=== PATIENT | female | born 1935 | race Caucasian/White ===

== ENCOUNTER 2022-09-26 11:04 | Inpatient (IN) | payer OTHER ==
[~2022-09-26] VITALS: Ht 142.2 cm; Wt 45.6 kg
[2022-09-26 11:54] LABS: Basophils # (auto) 0.1 10 ^3/uL (0-0.2); Eosinophils # (auto) 0 10 ^3/uL (0-0.8); Lymphocytes # (auto) 1.4 10 ^3/uL (0.4-5.4); Monocytes # (auto) 0.8 10 ^3/uL (0-1.3)
[2022-09-26 11:58] LABS: Basophils % (auto) 0.6 % (0.0-2.0); Eosinophils % (auto) 0.2 % (0.0-7.0); Hematocrit 38.3 % (36.0-46.0); Hemoglobin 12.2 g/dL (12.2-16.2); Lymphocytes % (auto) 11.8 % (10.0-50.0); Mean Corpuscular Hemoglobin 24.8 pg (28.0-32.0); Mean Corpuscular Volume 77.5 fL (80.0-100.0); Monocytes % (auto) 6.7 % (0.0-12.0); Neutrophils # (auto) 9.7 10 ^3/uL (1.6-8.6); Neutrophils % (auto) 80.7 % (37.0-80.0); Red Blood Cells 4.94 10^6/uL (4.0-5.20)
[2022-09-26 12:10] LABS: Albumin 2.7 g/dL (3.4-5.0); BUN/Creatinine Ratio 13.2; Calcium 8.4 mg/dL (8.5-10.1); Potassium 3.8 mmol/L (3.5-5.1)
[2022-09-26 12:12] LABS: Bilirubin, Total 1.5 mg/dL (0.2-1.0); Total Protein 6.2 g/dL (6.4-8.2)
[2022-09-26 12:23] LABS: INR 1.13 (0.9-1.15); Partial Thromboplastin Time 28.5 sec (24.6-33.4)
[2022-09-26] MEDS ORDERED: SODIUM CHLORIDE 0.9% 1,000 ML IV ONE ×2 (15:30→18:45)
[2022-09-26] MEDS ORDERED: HYDROcodone-ACET 10/325MG TAB PO ONE (17:00)
[2022-09-26 17:49] LABS: Urine Bacteria MOD /hpf (None Seen); Urine Blood 1+ /uL (Negative); Urine Specific Gravity 1.016 (1.001-1.035); Urine WBC 1100 /hpf (0 - 5); Urine WBC Clumps PRESENT /hpf (None Seen)
[2022-09-26] MEDS ORDERED: SODIUM CHLORIDE 0.9% 1,000 ML IV SCH (18:15)
[2022-09-26] MEDS ORDERED: cefTRIAXone 1GM/50ML D5W 50 ML IV ONE (19:00)
[2022-09-27] MEDS ORDERED: EPINEPHrine HCL 1 MG/1 ML AMP ONE (06:46)
[2022-09-27] MEDS ORDERED: DexAMETHasone SOD PHOS 4 MG/1ML SDV INJ ONE (06:46)
[2022-09-27] MEDS ORDERED: BUPIVACAINE 0.25% INJ 50ML VIAL ONE (06:46)
[2022-09-27 07:22] LABS: Albumin 2.2 g/dL (3.4-5.0); Calcium 7.8 mg/dL (8.5-10.1); Potassium 3.6 mmol/L (3.5-5.1)
[2022-09-27 07:24] LABS: BUN/Creatinine Ratio 24.4
[2022-09-27 07:41] LABS: Bilirubin, Total 0.9 mg/dL (0.2-1.0); Total Protein 5.1 g/dL (6.4-8.2)
[2022-09-27] MEDS ORDERED: PROPOFOL 10 MG/ML 20 ML IV ONE ×2 (07:41→09:30)
[2022-09-27 07:42] LABS: Basophils # (auto) 0 10 ^3/uL (0-0.2); Basophils % (auto) 0.5 % (0.0-2.0); Eosinophils # (auto) 0.1 10 ^3/uL (0-0.8); Eosinophils % (auto) 1.6 % (0.0-7.0); Hematocrit 32.6 % (36.0-46.0); Hemoglobin 10.8 g/dL (12.2-16.2); Lymphocytes # (auto) 1.7 10 ^3/uL (0.4-5.4); Lymphocytes % (auto) 19.8 % (10.0-50.0); Mean Corpuscular Hemoglobin 25.7 pg (28.0-32.0); Mean Corpuscular Volume 77.8 fL (80.0-100.0); Monocytes # (auto) 0.6 10 ^3/uL (0-1.3); Monocytes % (auto) 7.2 % (0.0-12.0); Neutrophils % (auto) 70.9 % (37.0-80.0); Red Blood Cells 4.19 10^6/uL (4.0-5.20); Red Cell Distribution Width 19.3 % (11.8-14.3); White Blood Cell 8.5 10^3/uL (4.4-10.8)
[2022-09-27] MEDS ORDERED: KETOROLAC TROMETH 30 MG/ML 1ML VIAL ONE (07:42)
[2022-09-27] MEDS ORDERED: GLYCOPYRROLATE 0.2 MG/ML 1ML VIAL ONE (07:42)
[2022-09-27] MEDS ORDERED: DexAMETHasone SOD PHOS 10MG/1ML VIAL INJ ONE (07:42)
[2022-09-27] MEDS ORDERED: LIDOCAINE 1% (LOCAL ANESTH.) PF 5ml SDV ONE (07:42)
[2022-09-27] MEDS ORDERED: ONDANSETRON HCL 4 MG/2 ML VIAL ONE ×2 (07:42→11:11)
[2022-09-27] MEDS ORDERED: ceFAZolin 1GM/50ML 50 ML IV ONE (08:38)
[2022-09-27] MEDS ORDERED: cefTRIAXone 1GM/50ML D5W 50 ML IV SCH (09:00)
[2022-09-27] MEDS ORDERED: PHENYLEPHRINE HCL 10 MG/ML VL ONE (09:05)
[2022-09-27] MEDS ORDERED: SODIUM CHLORIDE LOCK 20 ML ONE (09:05)
[2022-09-27] MEDS ORDERED: SODIUM CHLORIDE LOCK 10 ML ONE (09:23)
[2022-09-27] MEDS: ENOXAPARIN SOD 30 MG/0.3 ML SYRINGE SC SCH (10:00)
[2022-09-27] MEDS ORDERED: hydrALAZINE HCL 20 MG/ML VL IV PRN (10:45)
[2022-09-27] MEDS ORDERED: LABETALOL HCL 5 MG/ML 4ML SYRINGE IV PRN (10:45)
[2022-09-27] MEDS ORDERED: NALOXONE HCL 0.4 MG/ML VIAL IV PRN (10:45)
[2022-09-27] MEDS ORDERED: ONDANSETRON HCL 4 MG/2 ML VIAL IV PRN ×2 (10:45→16:15)
[2022-09-27] MEDS ORDERED: HYDROmorphone HCL 2 MG/ML VL/or syr IV PRN (10:45)
[2022-09-27] MEDS ORDERED: fentaNYL CITRATE 100 MCG/2 ML VL IV PRN (10:45)
[2022-09-27] MEDS ORDERED: FLUMAZENIL 0.1 MG/ML INJ 10ML MDV IV PRN (10:45)
[2022-09-27] MEDS ORDERED: ePHEDrine SULFATE 50 MG/ML AMP IV PRN (10:45)
[2022-09-27] MEDS: PIPERACILLIN-TAZOB 3.375GM 100 ML IV SCH (17:07)
[2022-09-27] MEDS ORDERED: GABA100C9 PO (18:17)
[2022-09-27] MEDS ORDERED: HYDR-4902 PO (18:17)
[2022-09-27] MEDS ORDERED: LORazepam 2MG/ML-1ML VIAL IV PRN (18:45)
[2022-09-27 19:30] VITALS: BP 135/88
[2022-09-27] MEDS ORDERED: HALOPERIDOL LACTATE 5 MG/ML INJ VIAL IM ONE (19:45)
[2022-09-27] MEDS: HALOPERIDOL LACTATE 5 MG/ML INJ VIAL IM PRN (20:09)
[2022-09-27] MEDS: SENNA 8.6 MG TAB PO SCH (21:32)
[2022-09-27] MEDS: MORPHINE SULFATE INJ 2 MG/ml SYRG IV PRN (21:33)
[2022-09-28] MEDS: HALOPERIDOL LACTATE 5 MG/ML INJ VIAL IM PRN (02:25)
[2022-09-28] MEDS: PIPERACILLIN-TAZOB 3.375GM 100 ML IV SCH ×2 (02:29→10:28)
[2022-09-28 07:31] LABS: Basophils # (auto) 0 10 ^3/uL (0-0.2); Eosinophils # (auto) 0 10 ^3/uL (0-0.8)
[2022-09-28 07:33] LABS: Basophils % (auto) 0.1 % (0.0-2.0); Hemoglobin 10.4 g/dL (12.2-16.2); Lymphocytes % (auto) 6.8 % (10.0-50.0); Mean Corpuscular Hemoglobin 25.7 pg (28.0-32.0); Mean Corpuscular Hgb Conc. 32.3 g/dL (32.0-36.0); Mean Corpuscular Volume 79.4 fL (80.0-100.0); Monocytes # (auto) 1.1 10 ^3/uL (0-1.3); Monocytes % (auto) 7.1 % (0.0-12.0); Neutrophils # (auto) 12.7 10 ^3/uL (1.6-8.6); Red Blood Cells 4.03 10^6/uL (4.0-5.20); Red Cell Distribution Width 19.9 % (11.8-14.3); White Blood Cell 14.8 10^3/uL (4.4-10.8)
[2022-09-28 08:00] VITALS: BP 104/70
[2022-09-28 09:00] VITALS: BP 104/70
[2022-09-28] MEDS ORDERED: FAMOTIDINE 20 MG TAB PO SCH (10:00)
[2022-09-28] MEDS: ENOXAPARIN SOD 30 MG/0.3 ML SYRINGE SC SCH (10:28)
[2022-09-28] MEDS: HYDROcodone-ACET 5/325MG TAB PO PRN ×2 (10:29→17:44)
[2022-09-28 13:00] VITALS: BP 114/79
[2022-09-28 17:00] VITALS: BP 109/73
[2022-09-28] MEDS: PIPERACILLIN-TAZOB 2.25GM 50 ML IV SCH (17:44)
[2022-09-28 19:30] VITALS: BP 151/57
[2022-09-28] MEDS: SENNA 8.6 MG TAB PO SCH (21:34)
[2022-09-28 22:00] VITALS: BP 151/57
[2022-09-29] MEDS: PIPERACILLIN-TAZOB 2.25GM 50 ML IV SCH ×4 (00:19→17:51)
[2022-09-29 09:01] VITALS: BP 128/83
[2022-09-29] MEDS: ENOXAPARIN SOD 30 MG/0.3 ML SYRINGE SC SCH (09:54)
[2022-09-29 14:00] VITALS: BP 140/83
[2022-09-29 16:50] VITALS: BP 120/72
[2022-09-29] MEDS: MORPHINE SULFATE INJ 2 MG/ml SYRG IV PRN (17:50)
[2022-09-29 19:48] VITALS: BP 141/65
[2022-09-29] MEDS: SENNA 8.6 MG TAB PO SCH (22:49)
== END 2022-09-29 23:30 | DRG 481 ==
LOC: EDBD 11:04 → ER 11:04 → OVERFLOW 18:18 → WEST WING 09-27 16:19
PROVIDERS: ADMIT Nurse Practitioner Family; ATTEND Hospitalist
PROC: BQ111ZZ Fluoroscopy of Left Hip using Low Osmolar Contrast (ICD-10-PCS; 2022-09-27)
PROC: 0QS734Z Reposition Left Upper Femur with Internal Fixation Device, Percutaneous Approach (ICD-10-PCS; principal; 2022-09-27 08:48)
DX: S72.142A Displaced intertrochanteric fracture of left femur, initial encounter for closed fracture (principal); N39.0 Urinary tract infection, site not specified; E11.9 Type 2 diabetes mellitus without complications; F41.9 Anxiety disorder, unspecified; W08.XXXA Fall from other furniture, initial encounter; S09.90XA Unspecified injury of head, initial encounter; Z20.822 Contact with and (suspected) exposure to COVID-19; Z90.49 Acquired absence of other specified parts of digestive tract; Y93.89 Activity, other specified; Y92.89 Other specified places as the place of occurrence of the external cause; Y99.8 Other external cause status
CPT/HCPCS: 36415; 70450; 70551; 71045; 72192; 73502; 76000; 80053; 81001; 82962; 83036; 84484; 85025; 85610; 85730; 86850; 86900; 86901; 87040; 87081; 87086; 87426; 93005; 96360; 96361; 97110; 97116; G0378; J0171; J0690; J0696; J1100; J1885; J2405; J2543; J2704; J3490